=== PATIENT | male | born 1990 | race Caucasian/White ===

== ENCOUNTER 2016-12-11 14:48 | Emergency (ER) | payer OTHER ==
[~2016-12-11] VITALS: Ht 182.9 cm; Wt 93.2 kg
[2016-12-11 15:01] VITALS: BP 149/84; PULSE 88; RESP 19; O2SAT 99
--- NOTE | 2016-12-11 16:08 | ED.REPORT ---
HPI-Trauma Minor / Fall Date of Service Dec 11, 2016 ED Provider: Zhanna Das History of Present Illness: slipped on wet stairs falling face down and hit head on steel mesh door and hit exposed bolt. no loc. nausea initially, no vomiting. unknown tdap. primary care is [facility] in [place]. pain on head, elbows and knees and hand pain. happened at work. 04/24 Nursing Notes Stated Complaint: FELL DOWN STAIRS AND HIT HEAD Chief Complaint: Laceration Nursing Notes Reviewed: Yes Allergies: Coded Allergies: No Known Allergies (Unverified , 12/11/16) General Time Seen by MD: 16:05 Chief Complaint Fall, Face injury Hx Obtained From: Patient Onset Occurred: 1 - 4 hours ago Symptom Duration: Since onset Caused by: Fall down stairs Past Medical History Past Medical History Denies: Asthma, Diabetes mellitus Past Surgical History Reports: Appendectomy (at 7 years old) Smoking History Current Every Day Smoker (1 cig a week) Social History Alcohol Use: Denies alcohol use Drug Use: Denies drug use Occupation mom lives with him, work for the [employer] 12/11/2016 Ambulatory Status Independent Review of Systems Basic Review of Systems Cardiovascular: No chest pain GI: No abdominal pain, No anorexia, No nausea, No vomiting Psychiatric: Normal thought content Physical Exam Initial Vital Signs Vital Signs (First) Date Time Temp Pulse Resp B/P Pulse Ox O2 Delivery O2 Flow Rate FiO2 12/11/16 15:01 36.4 88 19 149/84 99 Room Air Initial VS: Reviewed, Vital signs normal Head / Eyes: Atraumatic, Normocephalic, PERRL ENT: Mucous membranes moist, Conjunctiva normal, No scleral icterus Respiratory: Breath sounds normal, Clear to auscultation, No respiratory distress Cardiovascular: Regular rate & rhythm, Heart sounds normal, Intact distal pulses Abdomen / GI: Soft, Non-tender, No guarding, No rebound, No distention Back: No CVA tenderness Lymphatic: No lymphadenopathy Extremities: Vascular intact, Neuro intact, No swelling, No tenderness Skin: Warm, Dry, No cyanosis Neurologic: Alert, Oriented, Nonfocal Psychiatric: Mood/affect normal, Behavior normal, Normal thought content General/Constitutional: Awake, Alert, No acute distress, Well appearing, Well developed, Well nourished, Cooperative, Not toxic appearing Neck: Atraumatic, Supple, No meningismus, Full range of motion laceration by right eye brow, contusion extends from just below hairline into hair about 14 cm. Skin is intact in contused area. Respiratory / Chest: Atraumatic, Breath sounds NL, Breath sounds = bilat, No respiratory distress Cardiovascular: Heart rate NL, Regular rhythm, Heart sounds NL, No gallop left hand has smaoll lacerations mostly over the joint area right knee has abrasion and multiple small abrasions on knee Interpretation & Diagnostics CT Head Interpretation TECHNIQUE: Noncontrast 4.5 mm thick angled axial sections acquired from the foramen magnum to the vertex, with coronal reformats. COMPARISON: None. FINDINGS: Image quality: Excellent. CSF spaces: Basal cisterns are patent. No extra-axial fluid collections. Ventricles are normal in size and shape. Brain: No midline shift. No intracranial masses or hemorrhage. Solis-white matter interface is normal. Skull and face: Calvarium and visualized facial bones are intact, without suspicious lesions. Sinuses: Visualized sinuses and mastoids are clear. IMPRESSION: No abnormality is found in the head CT without contrast. Sinuses and mastoids are clear. No traumatic change the visualized facial bones is seen. No intracranial abnormality is identified. Procedures Laceration Management Time: 17:00 Procedure Performed by: Allied health pract Consent / Setup / Site Prep: Informed consent provided, Consent from patient , Hand hygiene observed, Stand sterile technique Location of Wound: right eye brow Wound Length: 3 cm Local Anesthesia: Lidocaine 1%, 4cc, 27g needle Digital Block: No Wound Preparation: Normal saline Debridement: None Irrigation: 200 cc Foreign Body Explore / Removal: Explored for foreign body Repair Skin: ___ O (5), Nylon # Sutures - Skin: 9 Closure Layers: 1 Suture Technique: Simple Post-Procedure / Complications: Antibiotic oint applied, No complications, Condition improved, Tolerated procedure well, Patient stable Re-Eval/Medical Decision Med Decision/Clinical Course 26 year old male presnets for evualation after fall down stairs with head impact into steel door. Patient reports initially had nausea but has resolved. Is alert and oriented times 3. laceration repaired. Head CT is negative. No sign of any skull fracture, brain bleed or extremity fracture. Discharge & Departure Impression: Primary Impression: Laceration Additional Impression: Fall Encounter type: initial encounter Qualified Code: W19.XXXA - Unspecified fall, initial encounter Disposition: Home Patient Instructions: Laceration (ED) Additional Instructions: The laceration has been repaired with 9 sutures. Keep it dry for 24 hours. It is OK to get it briefly wet after that. You have been updated on your tdap. The head CT looks good. No sign of skull fracture or bleeding into the brain. Off work Monday and Monday evening, returning on evening. Return On Monday for suture removal. Use ice 15 minutes on and 15 minutes on for 2 to 3 days. Need to have cloth barrier between your skin and the ice. Use ibuprofen 800 mg 3 times a day for 5 days. Use hydrocodone 1 up to 2 times a day as needed for severe unrelenting pain. #10. Can not take this medication and work. Referrals: [facility] EDSupervising Provider for APC: Bhupinder Butts MD copies to: [facility] Zhanna Das Dec 11, 2016 16:08
[2016-12-11] MEDS ORDERED: TdaP Vaccine 0.5 mL Inj IM ONE (16:20)
[2016-12-11] MEDS ORDERED: Lidocaine-Epi-Tetracaine Solution 3 mL Syringe TOPICAL ONE (16:20)
[2016-12-11] MEDS ORDERED: HYDROcodone-APAP 5-325 mg Tablet PO ONE (17:25)
--- NOTE | 2016-12-11 17:29 | DRSVH ---
PROCEDURE: CT BRAIN WITHOUT CONTRAST ([id number]) INDICATIONS: fall down flight of stairs and hit steel door TECHNIQUE: Noncontrast 4.5 mm thick angled axial sections acquired from the foramen magnum to the vertex, with c oronal reformats. COMPARISON: None. FINDINGS: Image quality: Excellent. CSF spaces: Basal cisterns are patent. No extra-axial fluid collections. Ventricles are normal in size and shape. Brain: No midline shift. No intracranial masses or hemorrhage. Solis-white matter interface is norm al. Skull and face: Calvarium and visualized facial bones are intact, without suspicious lesions. Sinuses: Visualized sinuses and mastoids are clear. IMPRESSION: No abnormality is found in the head CT without contrast. Sinuses and mastoids are clear. No traumatic change the visualized facial bones is seen. No intracranial abnormality is identified. Dictated by: Neto Gauthier M.D. on 12/11/2016 at 17:26 Approved by: Neto Gauthier M.D. on 12/11/2016 at 17:27
[2016-12-11 17:48] VITALS: BP 142/74; PULSE 67; RESP 16; O2SAT 97
== END 2016-12-11 17:52 | disposition home or self-care (01) ==
LOC: SED 14:48
DX: S01.111A Laceration without foreign body of right eyelid and periocular area, initial encounter (principal); S80.211A Abrasion, right knee, initial encounter; W10.8XXA Fall (on) (from) other stairs and steps, initial encounter; V93.3 Fall on board watercraft; W22.09XA Striking against other stationary object, initial encounter; Y92.59 Other trade areas as the place of occurrence of the external cause; Y93.89 Activity, other specified; Y99.0 Civilian activity done for income or pay; M25.529 Pain in unspecified elbow; M79.643 Pain in unspecified hand; F17.200 Nicotine dependence, unspecified, uncomplicated; Z23 Encounter for immunization

== ENCOUNTER 2016-12-19 09:13 | Emergency (ER) | payer OTHER ==
[2016-12-19 09:39] VITALS: BP 126/72; PULSE 63; RESP 16; O2SAT 98
--- NOTE | 2016-12-19 15:33 | PCM.EDPN ---
ED Note Date of Service Dec 19, 2016 Presents for suture removal. Also needs return to work note Sutures removed by RN and steri strip placed. Healing nicely over Right eyebrow. note written. Eneida Gonzalez MD Dec 19, 2016 15:33
== END 2016-12-19 10:26 | disposition home or self-care (01) ==
LOC: SED 09:13
DX: Z48.02 Encounter for removal of sutures (principal)